=== PATIENT | female | born 1995 | race Caucasian/White ===

== ENCOUNTER 2017-11-06 01:37 | Inpatient (IN) | payer OTHER ==
[~2017-11-06] VITALS: Ht 160 cm; Wt 49.4 kg
[2017-11-06] VITALS (7 sets, daily range): BP systolic 102–134; BP diastolic 56–83
[2017-11-06] MEDS ORDERED: HYDROXYZINE PAMOATE 25 MG CAPSULE PO PRN (03:15)
[2017-11-06] MEDS ORDERED: MAGNESIUM HYDROXIDE 30 ML LIQUID UDC PO PRN (03:15)
[2017-11-06] MEDS ORDERED: DICYCLOMINE HCL 20 MG TABLET PO PRN (03:15)
[2017-11-06] MEDS ORDERED: ACETAMINOPHEN 325 MG TABLET PO PRN (03:15)
[2017-11-06] MEDS ORDERED: ONDANSETRON 4 MG/2 ML VIAL IM PRN (03:15)
[2017-11-06] MEDS ORDERED: MIRALAX 17 GM POWD.PACK PO PRN (03:15)
[2017-11-06] MEDS ORDERED: BUPRENORPHINE HCL 2 MG TAB.SUBL SL PRN ×2 (03:15→12:45)
[2017-11-06] MEDS ORDERED: LOPERAMIDE HCL 2 MG CAPSULE PO PRN ×2 (03:15)
[2017-11-06] MEDS ORDERED: ONDANSETRON ODT 4 MG TAB.RAPDIS SL PRN (03:15)
[2017-11-06] MEDS ORDERED: MAG HYDROX/AL HYDROX/SIMETH 30 ML LIQUID UDC PO PRN (03:15)
[2017-11-06] MEDS ORDERED: diphenhydrAMINE 50 MG CAPSULE PO PRN (03:15)
[2017-11-06] MEDS ORDERED: LORAZEPAM 1 MG TABLET PO PRN (03:15)
[2017-11-06] MEDS ORDERED: LORAZEPAM 2 MG/1 ML VIAL IM PRN (03:15)
[2017-11-06 03:32] LABS: *URINE HCG, QUAL NEGATIVE (NEGATIVE)
[2017-11-06 06:15] LABS: *AMPHETAMINE, URINE NEGATIVE (NEGATIVE); *BARBITURATE, URINE NEGATIVE (NEGATIVE); *CANNABINOID, URINE NEGATIVE (NEGATIVE); *COCCAINE, URINE POSITIVE (NEGATIVE); *OPIATE, URINE POSITIVE (NEGATIVE); *PHENCYCLIDINE SCREEN,URINE NEGATIVE (NEGATIVE)
[2017-11-06] MEDS ORDERED: MULTIVITAMINS,THERAPEUTIC TABLET PO SCH (09:00)
[2017-11-06] MEDS ORDERED: DIPH25TA62 PO (09:00)
[2017-11-06 12:33] LABS: BASOPHILS % (AUTO) 0.3 % (0.0-2.0); EOSINOPHILS # (AUTO) 0.1 K/uL (0.0-0.7); EOSINOPHILS % (AUTO) 2.1 % (0.0-7.0); HEMATOCRIT 46.1 % (31.2-41.9); HEMOGLOBIN 15.5 g/dL (10.9-14.3); LYMPHOCYTES # (AUTO) 1.5 K/uL (20.0-40.0); LYMPHOCYTES % (AUTO) 31.1 % (20.5-51.5); MEAN CORPUSCULAR HEMOGLOBIN 28.5 uug (24.7-32.8); MEAN CORPUSCULAR HGB CONC 34 g/dL (32.3-35.6); MONOCYTES # (AUTO) 0.3 K/uL (2.0-10.0); MONOCYTES % (AUTO) 6.9 % (0.0-11.0); NEUTROPHILS # (AUTO) 2.9 K/uL (1.8-8.9); NEUTROPHILS % (AUTO) 59.6 % (38.5-71.5); PLATELET COUNT (AUTO) 221 K/uL (179-408); RED BLOOD CELL COUNT(AUTO) 5.42 MIL/uL (3.63-4.92); WHITE BLOOD COUNT (AUTO) 4.9 K/uL (3.8-11.8)
[2017-11-06 12:55] LABS: ALANINE AMINOTRANSFERASE 189 U/L (14-59); ALKALINE PHOSPHATASE 220 U/L (50-136); AMYLASE 53 U/L (25-115); ASPARTATE AMINOTRANSFERASE 45 U/L (15-37); BILIRUBIN,TOTAL 0.3 mg/dL (0.2-1.0); CARBON DIOXIDE 31 mmol/L (21-32); CHLORIDE 102 mmol/L (98-107); CREATININE 0.9 mg/dL (0.6-1.3); GLUCOSE 70 mg/dL (74-106); LIPASE 167 U/L (73-393); POTASSIUM 4.3 mmol/L (3.5-5.1); TOTAL PROTEIN, SERUM 8.1 g/dL (6.4-8.2); UREA NITROGEN, BLOOD 7 mg/dL (7-18)
[2017-11-06 12:58] LABS: ETHANOL < 3 MG/DL (0-0)
[2017-11-06 13:03] LABS: THYROID STIMULATING HORMONE 0.161 mIU/mL (0.358-3.740)
[2017-11-06] MEDS: LORAZEPAM 1 MG TABLET PO PRN ×2 (13:13→21:21)
[2017-11-06] MEDS: METHOCARBAMOL 750 MG TABLET PO PRN (13:13)
[2017-11-06] MEDS: LAMOTRIGINE 200 MG TABLET PO SCH (14:22)
[2017-11-06] MEDS ORDERED: VALACYCLOVIR HCL 500 MG TABLET PO ONE (15:15)
[2017-11-06] MEDS: BUPRENORPHINE HCL 2 MG TAB.SUBL SL SCH ×2 (16:21→21:01)
[2017-11-06] MEDS: IBUPROFEN 600 MG TABLET PO PRN ×2 (17:34→23:36)
[2017-11-06] MEDS: CLONIDINE HCL 0.1 MG TABLET PO PRN (17:37)
[2017-11-06] MEDS ORDERED: GABAPENTIN 300 MG CAPSULE PO ONE (18:00)
[2017-11-06] MEDS: QUETIAPINE FUMARATE 25 MG TABLET PO SCH (21:00)
[2017-11-06] MEDS: VALACYCLOVIR HCL 500 MG TABLET PO SCH (21:01)
[2017-11-07] VITALS: BP 108/57
[2017-11-07 04:00] VITALS: BP 105/53
[2017-11-07 08:06] LABS: HEPATITIS B SURFACE AG Negative (Negative)
[2017-11-07 08:23] VITALS: BP 100/60
[2017-11-07] MEDS: LAMOTRIGINE 200 MG TABLET PO SCH (08:26)
[2017-11-07] MEDS: VALACYCLOVIR HCL 500 MG TABLET PO SCH ×2 (08:26→21:11)
[2017-11-07] MEDS ORDERED: HYDROXYZINE PAMOATE 25 MG CAPSULE PO PRN (09:00)
[2017-11-07] MEDS ORDERED: TUBERCULIN,PURIF.PROT.DERIV. 5 TU/0.1 ML TEST ID ONE (09:00)
[2017-11-07] MEDS ORDERED: BUPRENORPHINE HCL 2 MG TAB.SUBL SL SCH (09:00)
[2017-11-07] MEDS ORDERED: KETOROLAC TROMETHAMINE 30 MG INJ IM PRN (10:45)
[2017-11-07] MEDS: LORAZEPAM 1 MG TABLET PO SCH ×3 (10:46→21:10)
[2017-11-07 13:45] VITALS: BP 126/81
[2017-11-07] MEDS: GABAPENTIN 300 MG CAPSULE PO SCH ×2 (14:13→21:10)
[2017-11-07] MEDS: BUPRENORPHINE HCL 2 MG TAB.SUBL SL SCH ×2 (14:14→21:11)
[2017-11-07 17:11] VITALS: BP 121/78
[2017-11-07 20:00] VITALS: BP 140/88
[2017-11-07] MEDS ORDERED: MUPIROCIN 2% OINT 22 GM TUBE NS SCH (21:00)
[2017-11-07] MEDS: QUETIAPINE FUMARATE 25 MG TABLET PO SCH (21:10)
[2017-11-07] MEDS: MUPIROCIN 2% OINT 22 GM TUBE NS SCH (21:11)
[2017-11-07] MEDS: METHOCARBAMOL 750 MG TABLET PO PRN (22:03)
[2017-11-07] MEDS ORDERED: diphenhydrAMINE 50 MG CAPSULE PO ONE (23:30)
[2017-11-08] VITALS: BP 134/86
[2017-11-08 04:00] VITALS: BP 116/79
[2017-11-08 08:28] VITALS: BP 118/76
[2017-11-08] MEDS: VALACYCLOVIR HCL 500 MG TABLET PO SCH ×2 (08:39→20:11)
[2017-11-08] MEDS: LAMOTRIGINE 200 MG TABLET PO SCH (08:39)
[2017-11-08] MEDS: GABAPENTIN 300 MG CAPSULE PO SCH ×2 (08:39→14:10)
[2017-11-08] MEDS: METHOCARBAMOL 750 MG TABLET PO PRN (08:39)
[2017-11-08] MEDS: BUPRENORPHINE HCL 2 MG TAB.SUBL SL SCH ×3 (08:40→20:12)
[2017-11-08] MEDS: MUPIROCIN 2% OINT 22 GM TUBE NS SCH ×2 (08:42→20:20)
[2017-11-08] MEDS ORDERED: LORAZEPAM 1 MG TABLET PO SCH ×3 (09:00→21:00)
[2017-11-08 13:25] VITALS: BP 133/85
[2017-11-08 16:46] VITALS: BP 137/90
[2017-11-08] MEDS: CLONIDINE HCL 0.1 MG TABLET PO PRN (18:31)
[2017-11-08 20:00] VITALS: BP 124/82
[2017-11-08] MEDS: SULFAMETH/TRIMETH 800/160 MG TABLET PO SCH (20:11)
[2017-11-08] MEDS: QUETIAPINE FUMARATE 25 MG TABLET PO SCH (20:11)
[2017-11-08] MEDS ORDERED: GABAPENTIN 300 MG CAPSULE PO SCH (21:00)
[2017-11-09 08:00] VITALS: BP 108/65
[2017-11-09] MEDS: VALACYCLOVIR HCL 500 MG TABLET PO SCH (08:35)
[2017-11-09] MEDS: LAMOTRIGINE 200 MG TABLET PO SCH (08:35)
[2017-11-09] MEDS: GABAPENTIN 300 MG CAPSULE PO SCH ×3 (08:35→20:16)
[2017-11-09] MEDS: BUPRENORPHINE HCL 2 MG TAB.SUBL SL SCH ×2 (08:35→20:17)
[2017-11-09] MEDS: LORAZEPAM 1 MG TABLET PO SCH ×3 (08:35→20:16)
[2017-11-09] MEDS: SULFAMETH/TRIMETH 800/160 MG TABLET PO SCH ×2 (08:35→20:16)
[2017-11-09] MEDS ORDERED: LORAZEPAM 1 MG TABLET PO SCH (09:00)
[2017-11-09] MEDS: MUPIROCIN 2% OINT 22 GM TUBE NS SCH ×2 (09:47→20:15)
[2017-11-09 12:00] VITALS: BP 116/83
[2017-11-09] MEDS: IBUPROFEN 600 MG TABLET PO PRN (13:55)
[2017-11-09 16:00] VITALS: BP 123/82
[2017-11-09 20:00] VITALS: BP 127/82
[2017-11-09] MEDS: QUETIAPINE FUMARATE 25 MG TABLET PO SCH ×2 (20:16→21:49)
[2017-11-09] MEDS: BACLOFEN 10 MG TABLET PO SCH (20:16)
[2017-11-09] MEDS ORDERED: diphenhydrAMINE 50 MG CAPSULE PO ONE (21:15)
[2017-11-09] MEDS: METHOCARBAMOL 750 MG TABLET PO PRN (21:52)
[2017-11-10] VITALS: BP 109/64
[2017-11-10 08:00] VITALS: BP 115/62
[2017-11-10] MEDS: GABAPENTIN 300 MG CAPSULE PO SCH (08:22)
[2017-11-10] MEDS: LAMOTRIGINE 200 MG TABLET PO SCH (08:22)
[2017-11-10] MEDS: SULFAMETH/TRIMETH 800/160 MG TABLET PO SCH ×2 (08:22→20:48)
[2017-11-10] MEDS: BACLOFEN 10 MG TABLET PO SCH ×3 (08:22→20:48)
[2017-11-10] MEDS: MUPIROCIN 2% OINT 22 GM TUBE NS SCH ×2 (08:23→20:50)
[2017-11-10] MEDS ORDERED: BUPRENORPHINE HCL 2 MG TAB.SUBL SL SCH (09:00)
[2017-11-10] MEDS ORDERED: LORAZEPAM 1 MG TABLET PO SCH (09:00)
[2017-11-10] MEDS ORDERED: CLONIDINE HCL 0.1 MG TABLET PO PRN (11:15)
[2017-11-10] MEDS ORDERED: CLONIDINE HCL 0.2 MG TABLET PO PRN (11:15)
[2017-11-10] MEDS: HYDROXYZINE PAMOATE 25 MG CAPSULE PO PRN ×2 (11:41→23:24)
[2017-11-10 12:00] VITALS: BP 133/90
[2017-11-10] MEDS: IBUPROFEN 600 MG TABLET PO PRN (12:44)
[2017-11-10] MEDS: METHOCARBAMOL 750 MG TABLET PO PRN ×2 (12:48→20:48)
[2017-11-10] MEDS ORDERED: GABA-536 PO (12:52)
[2017-11-10] MEDS ORDERED: CLON0.2T12 PO (12:52)
[2017-11-10] MEDS ORDERED: HYDR-3895 PO (12:52)
[2017-11-10] MEDS ORDERED: METH-406 PO (12:52)
[2017-11-10] MEDS ORDERED: IBUP-1955 PO (12:52)
[2017-11-10] MEDS ORDERED: DICY20TA28 PO (12:52)
[2017-11-10] MEDS: GABAPENTIN 400 MG CAPSULE PO SCH ×2 (14:10→20:48)
[2017-11-10 16:00] VITALS: BP 134/85
[2017-11-10 20:00] VITALS: BP 117/78
[2017-11-10] MEDS: QUETIAPINE FUMARATE 25 MG TABLET PO SCH (20:49)
[2017-11-10] MEDS ORDERED: diphenhydrAMINE 50 MG CAPSULE PO ONE (23:30)
[2017-11-11] VITALS: BP 132/85
[2017-11-11 08:00] VITALS: BP 106/64
[2017-11-11] MEDS: LAMOTRIGINE 200 MG TABLET PO SCH (08:36)
[2017-11-11] MEDS: MUPIROCIN 2% OINT 22 GM TUBE NS SCH (08:36)
[2017-11-11] MEDS: GABAPENTIN 400 MG CAPSULE PO SCH (08:37)
[2017-11-11] MEDS: BACLOFEN 10 MG TABLET PO SCH (08:37)
[2017-11-11] MEDS: SULFAMETH/TRIMETH 800/160 MG TABLET PO SCH (08:37)
== END 2017-11-11 09:40 | disposition other institution (70) | DRG 895 ==
LOC: SRC 01:51
PROVIDERS: ADMIT Internal Medicine; ATTEND Internal Medicine
PROC: HZ2ZZZZ Detoxification Services for Substance Abuse Treatment (ICD-10-PCS; principal; 2017-11-06)
PROC: HZ41ZZZ Group Counseling for Substance Abuse Treatment, Behavioral (ICD-10-PCS; 2017-11-07)
DX: F11.23 Opioid dependence with withdrawal (principal); F31.63 Bipolar disorder, current episode mixed, severe, without psychotic features; F17.210 Nicotine dependence, cigarettes, uncomplicated; F13.230 Sedative, hypnotic or anxiolytic dependence with withdrawal, uncomplicated; F90.9 Attention-deficit hyperactivity disorder, unspecified type; Z81.1 Family history of alcohol abuse and dependence; Z91.89 Other specified personal risk factors, not elsewhere classified; F14.10 Cocaine abuse, uncomplicated; Z59.0 Homelessness; Z59.1 Inadequate housing; Z22.322 Carrier or suspected carrier of Methicillin resistant Staphylococcus aureus; A60.00 Herpesviral infection of urogenital system, unspecified; L08.9 Local infection of the skin and subcutaneous tissue, unspecified; X78.8XXA Intentional self-harm by other sharp object, initial encounter; Y93.89 Activity, other specified; Y92.89 Other specified places as the place of occurrence of the external cause; E07.81 Sick-euthyroid syndrome; E05.90 Thyrotoxicosis, unspecified without thyrotoxic crisis or storm; R74.0 Nonspecific elevation of levels of transaminase and lactic acid dehydrogenase [LDH]
CPT/HCPCS: 36415; 70030-TC; 80307; 80353; 80361; 83690; 83735; 84443; 84703; 85025; 86580; 86592; 86705; 86803; 87340; 87806; G0480; Q0162; Q0163